=== PATIENT | female | born 1980 | race African-American/Black ===

== ENCOUNTER 2016-11-17 21:28 | Emergency (ER) | payer BC ==
[~2016-11-17 21:28] MED LIST: DENIES HOME MED
== END 2016-11-17 21:48 | disposition home or self-care (01) ==
LOC: ER 21:28
DX: S92.412A Displaced fracture of proximal phalanx of left great toe, initial encounter for closed fracture (principal); W18.40XA Slipping, tripping and stumbling without falling, unspecified, initial encounter
CPT/HCPCS: 73660-LT; 99283

== ENCOUNTER 2017-01-26 23:59 | Emergency (ER) | payer BC | END 2017-01-27 02:54 | disposition home or self-care (01) | LOC: ER 23:59 | DX: L23.7 Allergic contact dermatitis due to plants, except food (principal); Z87.01 Personal history of pneumonia (recurrent) | CPT/HCPCS: 96372; 99283 ==